=== PATIENT | male | born 2000 | race African-American/Black ===

== ENCOUNTER 2024-11-14 16:33 | Emergency (ER) | payer OTHER, SELFPAY ==
[2024-11-14 16:53] VITALS: BP 127/68
--- NOTE | 2024-11-14 19:18 | ED.GENMED ---
History of Present Illness
General
Chief Complaint: Musculo-Skeletal Complaint
Source: patient
Exam Limitations: none
Time Seen by Provider: 11/14/24 19:10
History of Present Illness
History of Present Illness:
See MDM
Past History
Past History
ED Past Medical History: None
ED Past Surgical History: Orthopedic
Social History
Tobacco: Non-smoker
Alcohol: None
Phy Exam
Physical Exam
Physical Exam:
See MDM
Course
Orders/Labs/Results
Orders:
Orders
11/14/24 16:36
Knee, Right 4 or More Views [CR Knee- Right 4 Or More View*] Urgent
Comment:
Reason For Exam: sudden pain while playing basketball.
11/14/24 19:17
Crutches-Treatment ONCE
Knee Immobilizer Right-Treatme ONCE
Ketorolac [Toradol] 30 mg IM NOW STA
Vital Signs
Initial and Last Documented VS:
Initial Vital Signs
Temp Pulse Resp BP Pulse Ox
98.2 F 73 16 127/68 99
11/14/24 16:53 11/14/24 16:53 11/14/24 16:53 11/14/24 16:53 11/14/24 16:53
Last Documented Vital Signs
Temp Pulse Resp BP Pulse Ox
98.2 F 73 16 127/68 99
11/14/24 16:53 11/14/24 16:53 11/14/24 16:53 11/14/24 16:53 11/14/24 16:53
MDM/Problems Addressed
Differential Diagnosis Includes:
HPI and MDM Narrative:
23-year-old male presenting with right knee pain. Patient was playing basketball and he felt a pop and a crackle in the inside of his right knee. This is the same area where he required meniscus repair surgery in the past. Patient is unsure how
he actually injured himself. He is unsure if he injured it while pivoting. He is having trouble weightbearing numbness or tingling
Physical exam
General: Well appearing and non-toxic
HEENT: protecting airway
Neck: appears supple
CV: No evidence of cyanosis
Resp: No accessory muscle use
Abd: Non-distended
Extremities: Swelling and tenderness to medial right knee along meniscus. Negative Divine's test. Pain with valgus stress
Neuro: alert
Psych: Normal affect
Skin: Intact
Problems Addressed including Acute and Chronic Conditions affecting care:
1. Right knee injury
Acuity: acute
Prognosis: stable
Details: Given his prior history, concern for meniscal injury. X-ray negative for fracture. Will place in knee immobilizer and give crutches and start NSAIDs and discussed follow-up with orthopedics
Differential Diagnosis (but not limited to): Meniscal tear, knee sprain
Drug therapy (if applicable): OTC meds, please see d/c instruction regarding Rx drugs
Amount and/or Complexity of Data Reviewed
Clinical info obtained from: Patient
External data reviewed: N/A
Labs I independently reviewed (but not limited to): N/A
Radiology: X-ray independently reviewed: Right knee x-ray negative for fracture
Pulse Ox: not hypoxic
EKG independently reviewed: N/A
Certified Peer Specialist: N/A
Critical Care: N/A
Risk of Complication:
Social Determinants of health: Good social support
Discussed with other providers: N/A
Escalation of Care includes Admit/Obs: After being observed in the Emergency Department, pt stable for discharge.
Occasional wrong word or 'sound a like' substitutions may have occurred due to the inherent limitations of voice recognition software. Read the chart carefully and recognize, using context, where substitutions have occurred.
*Critical Care Note
Total Time (30-74mins, 75-104mins- exclusive of procedures): Not Applicable
ED Attending Note
-
Portions of this chart may have been created with voice recognition software.� Occasional wrong word or��sound alike� substitutions may have occurred due to the inherent limitations of voice recognition software.
Discharge Plan
Departure
Patient Disposition: Home (Routine Discharge)
Date of Disposition: 11/14/24
Time of Disposition: 19:18
Patient with high blood pressure during this ER visit?: No
Discharge Problem:
Injury of meniscus of right knee
Prescriptions:
New
diclofenac potassium 50 mg tablet
50 mg PO BID Qty: 20 0RF
Referrals:
Brett Bunch MD [Active] -
Stand Alone Forms: Return to Work
Activity Restrictions/Additional Instructions:
Please return for any worsening symptoms.
You may return at any time if you have further concerns.
Please follow up with orthopedist at the first available appointment, preferably this week.
Thank you for choosing [facility].
Interventions
Interventions:
*Risk Screen - Suicide Last Done: 11/14/24 16:53
*General Assessment Last Done: 11/14/24 16:53
*ED COVID-19 Vaccine History Last Done: 11/14/24 16:53
Discharge Date and Time
Print Language: [id number]
[2024-11-14] MEDS: TORADOL 30 MG IM (19:49)
== END 2024-11-14 20:00 | disposition home or self-care (01) ==
LOC: EMR 16:33
PROVIDERS: EMERGENCY PHYSICIAN Student in an Organized Health Care Education/Training Program
DX: S83.8X1A Sprain of other specified parts of right knee, initial encounter (principal); X58.XXXA Exposure to other specified factors, initial encounter; Y93.67 Activity, basketball
CPT/HCPCS: 29505; 96372; 99284; 73564